=== PATIENT | female | born 1985 | race American Indian/Alaskan Native ===

== ENCOUNTER 2019-10-08 20:35 | Inpatient (IN) | payer OTHER, MEDICAID ==
[2019-10-08] MEDS ORDERED: LACTATED RINGERS 1,000 ML ONE (20:58)
[2019-10-08 21:59] LABS: Hematocrit 44.9 % (30.3-42.9); Hemoglobin 14.7 gm/dl (10.1-14.3); Mean Corpuscular HGB Conc 33 % (30-34); Mean Corpuscular Volume 93 fl (79-97); Platelet Count 214 K/mm3 (140-440); Red Blood Count 4.84 M/mm3 (3.65-5.03)
[2019-10-08] MEDS ORDERED: fentaNYL 100 MCG/2 ML INJ IV PRN (22:08)
[2019-10-08] MEDS ORDERED: FAMOTIDINE 20 MG/2 ML INJ IV PRN (22:09)
[2019-10-08] MEDS ORDERED: ONDANSETRON 4 MG/2 ML INJ IV PRN (22:09)
[2019-10-08] MEDS ORDERED: ZOLPIDEM 5 MG TAB PO PRN (22:10)
[2019-10-08] MEDS: miSOPROStol 25 MCG TAB PO PRN (22:42)
[2019-10-09] MEDS: miSOPROStol 25 MCG TAB PO PRN ×2 (03:11→07:32)
[2019-10-09] MEDS ORDERED: MINERAL OIL 30 ML ORAL LIQD PO PRN (06:37)
[2019-10-09] MEDS ORDERED: ePHEDrine SULFATE 50 MG/1 ML INJ IV PRN (06:37)
[2019-10-09] MEDS ORDERED: TERBUTALINE 1 MG/1 ML INJ IVP PRN (06:37)
[2019-10-09] MEDS ORDERED: TERBUTALINE 1 MG/1 ML INJ SUB-Q PRN (06:37)
[2019-10-09] MEDS ORDERED: LIDOCAINE (2%) 20 MG/1 ML VIAL 20 ML MDV INFILTRATI ONE (06:37)
[2019-10-09] MEDS ORDERED: LACTATED RINGERS 1,000 ML IV SCH (07:00)
[2019-10-09] MEDS ORDERED: OXYTOCIN 20 UNIT/1000ML DRIP 20 UNITS/1,000 ML BAG IV SCH (07:00)
--- NOTE | 2019-10-09 09:10 | History and Physical Report ---
History of Present Illness Date of examination: 10/09/19 Date of admission: 10/08/19 20:35 Chief complaint: IOL secondary to post-date History of present illness: 34 yo, @ 40.4 wks gestation, initiated care with [employer] @ 9.5 wks gestation. Her has been complicated by obesity, AMA, Anemia, UTI and CHTN. She presents to [facility] on 10/08/2019 evening for scheduled IOL. She reports +FM. Denies any VB or LOF. Labs: A+, antibody negative; HGB 10.7/Hct 33; PAP normal;VDRL non-reactive; HBsAg negative; HIV negative; platelets 325; GC/Chlamydia/Trich negative; MSAFP/Multiple markers negative; 1 hr gtt 91; GBS negative. Past History Past Medical History: no pertinent history Past Surgical History: no surgical history Family/Genetic History: none Social history: , lives with family, full code. denies: smoking, alcohol abuse, prescription drug abuse, IV drug use - Obstetrical History Expected Date of Delivery: 10/05/19 Actual Gestation: 40 Week(s) 4 Day(s) : 4 Para: 3 Hx # Term Pregnancies: 3 Number of Pregnancies: 0 Spontaneous Abortions: 0 Induced : 0 Number of Living Children: 3 #1 Infant Gender: Male year: 1,[birth year] Birthweight: 3.77 kg Method of Delivery: Vaginal Gestational age at delivery: 39 Complications: none #2 Infant Gender: Female year: 2,[birth year] Birthweight: 3.884 kg Method of Delivery: Vaginal Gestational age at delivery: 39 Complications: none #3 Gender: Male year: 2,[birth year] Birthweight: 3.77 kg Method of Delivery: Vaginal Gestational age at delivery: 39 Complications: none Medications and Allergies Allergies Allergy/AdvReac Type Severity Reaction Status Date / Time No Known Allergies Allergy Verified 06/18/19 05:04 Home Medications Medication Instructions Recorded Confirmed Last Taken Type Labetalol 100mg TAB 100 mg PO BID 10/08/19 10/08/19 10/08/19 History 147/Iron/Folic Acid 100 mg PO DAILY 10/08/19 10/08/19 10/08/19 History Vitamin D3 60 mg PO DAILY 10/08/19 10/08/19 10/08/19 History Active Meds: Active Medications Butorphanol Tartrate (Stadol) 2 mg IV Q2H PRN PRN Reason: Labor Pain Ephedrine Sulfate (Ephedrine Sulfate) 10 mg IV Q2M PRN PRN Reason: Hypotension Famotidine (Pepcid) 20 mg IV BID PRN PRN Reason: Indigestion Fentanyl (Sublimaze) 100 mcg IV Q2H PRN PRN Reason: Labor Pain Lactated Ringer's (Lactated Ringers) 1,000 mls @ 125 mls/hr IV DIRECT JENNIFER Oxytocin/Sodium Chloride (Pitocin/Ns 20 Unit/1000ml Drip) 20 units in 1,000 mls @ 125 mls/hr IV DIRECT JENNIFER Lactated Ringer's (Lactated Ringers) 1,000 mls @ 125 mls/hr IV DIRECT JENNIFER Mineral Oil (Mineral Oil) 30 ml PO QHS PRN PRN Reason: Constipation Ondansetron HCl (Zofran) 4 mg IV Q8H PRN PRN Reason: Nausea And Vomiting Terbutaline Sulfate (Brethine) 0.25 mg SUB-Q ONCE PRN PRN Reason: Hyperstimulation/Hypertonicity Terbutaline Sulfate (Brethine) 0.25 mg IVP ONCE PRN PRN Reason: Hyperstimulation/Hypertonicity Zolpidem Tartrate (Ambien) 5 mg PO QHS PRN PRN Reason: Sleep Review of Systems All systems: negative - Vital Signs Vital signs: Vital Signs Temp Pulse Resp BP 98.1 F 79 18 138/82 10/08/19 21:15 10/08/19 21:15 10/08/19 21:15 10/08/19 21:15 Temp Pulse Resp BP Pulse Ox 98.0 F 94 H 18 126/73 100 10/09/19 07:11 10/09/19 09:00 10/09/19 00:00 10/09/19 08:05 10/09/19 09:00 - Physical Exam Breasts: Positive: normal Cardiovascular: Regular rate Lungs: Positive: Normal air movement Abdomen: Positive: other (gravid) Vagina: Positive: normal moisture Uterus: Positive: enlarged Extremities: Positive: normal Deep Tendon Reflex Grade: Normal +2 - Obstetrical FHR: category 1 (with occasional early decelerations) Uterine Contraction Monitor Mode: External Cervical Dilatation: 2 Cervical Effacement Percentage: 50 station: -3 Uterine Contraction Frequency (min): 5-6 Uterine Contraction Pattern: Irregular Uterine Tone Measurement Phase: Resting Uterine Contraction Intensity: Mild Results Result Diagrams: 10/08/19 21:15 Abnormal lab results 10/08/19 Range/Units 21:15 Hgb 14.7 H (10.1-14.3) gm/dl Hct 44.9 H (30.3-42.9) % All other labs normal. Assessment and Plan - Patient Problems (1) Encounter for induction of labor Current Visit: Yes Status: Acute Plan to address problem: Admit to L & D IOL, initiated on 10/08/2019, has received Cytotec x 3 doses Cervical exam at 1130, initiate Pitocin @ 2mu/min, increase by 2 as tolerated Pain meds as desired Anticipate (2) Advanced maternal age in multigravida Current Visit: Yes Status: Acute (3) Chronic hypertension Current Visit: Yes Status: Acute Plan to address problem: Monitor B/Ps per policy Resume Labetol PP
[2019-10-09] MEDS ORDERED: OXYTOCIN DRIP 30 UNITS/500 ML BAG IV SCH (11:30)
--- NOTE | 2019-10-09 16:30 | Event Note ---
Date: 10/09/19 AROM'd clear. 2 Cont pit. Expectant care.
[2019-10-09] MEDS: BUTORPHANOL 2 MG/1 ML INJ IV PRN ×2 (18:21→22:52)
--- NOTE | 2019-10-09 19:11 | Event Note ---
Date: 10/09/19 Pt just had pit stopped due to suspected hyperstim. [place] with ctxs q 1 min with FHT showing some late decels and decreased LTV. FSE placed just now. VE = /-2. A/P - will watch closely and hold off on pit for now until FHT recovers.
[2019-10-09] MEDS: LACTATED RINGERS 1,000 ML IV SCH (19:47)
[2019-10-10] MEDS: LACTATED RINGERS 1,000 ML IV SCH (04:14)
[2019-10-10] MEDS ORDERED: OXYTOCIN 20 UNIT/1000ML DRIP 20 UNITS/1,000 ML BAG IV SCH (05:00)
[2019-10-10] MEDS ORDERED: PROMETHAZINE 25 MG TAB PO PRN (05:00)
[2019-10-10] MEDS ORDERED: diphenhydrAMINE 25 MG CAP PO PRN (05:00)
[2019-10-10] MEDS ORDERED: LANOLIN/ZINC/DIMETHICONE (LANSINOH) 7 GM TP PRN (05:00)
[2019-10-10] MEDS ORDERED: MAGNESIUM HYDROXIDE (MOM) ORAL LIQD UDC PO PRN (05:00)
[2019-10-10] MEDS ORDERED: ONDANSETRON 4 MG/2 ML INJ IV PRN (05:00)
[2019-10-10] MEDS ORDERED: WITCH HAZEL/ GLYCERIN PAD TP PRN (05:00)
[2019-10-10] MEDS ORDERED: PROMETHAZINE 25 MG RECT SUPP PR PRN (05:00)
[2019-10-10] MEDS ORDERED: BENZOCAINE/MENTHOL 20/0.5% TOP SPRAY 56 GM TP PRN (05:00)
[2019-10-10] MEDS ORDERED: ACETAMINOPHEN 325 MG TAB PO PRN (05:00)
--- NOTE | 2019-10-10 05:07 | Procedure Note ---
OB Delivery Note - Delivery Date of Delivery: 10/10/19 Surgeon: TANNA FRANK Hop Separator: ROYCE LAO Estimated blood loss: 200cc - Vaginal Delivery position: OA Intrapartum events: mult.variable deceleratio Delivery augmentation: rupture of membranes, pitocin Delivery monitor: internal FHT Route of delivery: Delivery placenta: spontaneous Delivery cord: 3 umbilical vessels Episiotomy: none Delivery laceration: none Anesthesia: intravenous Delivery comments: Anterior shoulder delivered with the assistance of brief Melissa and suprapub ic pressure. Bulb suctioned at perineum and again after delivery. Cord clamped and cut and baby to the warmer. Placenta delivered spontaneously. No lacs. Mother and baby stable. - Infant A at 1 minute: 8 at 5 minutes: 9 Gender: Female
[2019-10-10] MEDS: IBUPROFEN 600 MG TAB PO SCH ×2 (11:44→18:16)
[2019-10-11] MEDS: IBUPROFEN 600 MG TAB PO SCH ×2 (05:26→18:53)
[2019-10-11 08:18] LABS: Hematocrit 35.2 % (30.3-42.9); Hemoglobin 11.3 gm/dl (10.1-14.3)
--- NOTE | 2019-10-11 10:09 | Progress Note ---
Assessment and Plan - Patient Problems (1) Advanced maternal age in multigravida Current Visit: Yes Status: Acute (2) Chronic hypertension Current Visit: Yes Status: Acute Plan to address problem: Continue Labetalol as ordered F/U at office in 1 week Return to hospital for any sever H/As or visual changes (3) Normal spontaneous vaginal delivery Current Visit: Yes Status: Acute Plan to address problem: D/C home today if baby ok for d/c F/U at office in 6 wks for routine PP visit Subjective - Subjective Date of service: 10/11/19 Principal diagnosis: S/P ; PPD#1 Interval history: 34 yo, @ 40.4 wks gestation, initiated care with [employer] @ 9.5 wks gestation. Her has been complicated by obesity, AMA, Anemia, UTI and CHTN. She presents to [facility] on 10/08/2019 evening for scheduled IOL. She reports +FM. Denies any VB or LOF. Labs: A+, antibody negative; HGB 10.7/Hct 33; PAP normal;VDRL non-reactive; HBsAg negative; HIV negative; platelets 325; GC/Chlamydia/Trich negative; MSAFP/Multiple markers negative; 1 hr gtt 91; GBS negative. Patient reports: appetite normal, voiding normally, pain well controlled, flatus, ambulating normally Ledger: doing well, bottle feeding (and ) Objective - Vital Signs Latest vital signs: Vital Signs Temp Pulse Resp BP BP Pulse Ox 10/11/19 07:43 98.7 F 82 18 114/63 100 10/11/19 00:00 98.0 F 88 20 128/68 94 10/10/19 22:01 87 141/70 10/10/19 16:20 97.9 F 86 20 119/54 Intake and Output 10/10/19 10/11/19 10/11/19 23:59 07:59 15:59 Intake Total 560 240 120 Balance 560 240 120 Intake: Oral 560 120 Intake, Free Water 240 Other: Total, Intake Amount 240 120 # Voids Void 1 1 1 - Exam Breasts: Present: normal Cardiovascular: Present: Regular rate Lungs: Present: Normal air movement Abdomen: Present: soft Uterus: Present: firm, fundal height below umbilicus (U-1) Extremities: Present: normal Deep Tendon Reflex Grade: Normal +2
--- NOTE | 2019-10-11 10:18 | Discharge Summary ---
Providers - Providers Date of Admission: 10/08/19 20:35 Date of discharge: 10/11/19 (1500) Attending physician: FRANSISCA ZHOU MD Primary care physician: FRANSISCA ZHOU MD Hospitalization Reason for admission: induction of labor, IUP at term Delivery: Episiotomy: none Laceration: none Other procedures: none complications: none Discharge diagnosis: IUP at term delivered [place] baby: female Hospital course: See admission H & P; OB delivery summary and PP progress notes Condition at discharge: Good Disposition: DC-01 TO HOME OR SELFCARE - Discharge Diagnoses (1) Advanced maternal age in multigravida Status: Acute (2) Chronic hypertension Status: Acute (3) Normal spontaneous vaginal delivery Status: Acute Plan - Provider Discharge Summary Activity: routine, no sex for 6 weeks, no heavy lifting 4 weeks, no strenuous exercise Diet: routine Instructions: routine Additional instructions: [] Smoking cessation referral if applicable(refer to patient education folder for contact #) [] Refer to [facility] Booklet Call your doctor immediately for: * Fever > 100.5 * Heavy vaginal bleeding ( >1 pad per hour) * Severe persistent headache * Shortness of breath * Reddened, hot, painful area to leg or breast - Follow up plan Follow up: FRANSISCA ZHOU MD [Primary Care Provider] - 6 Weeks
[2019-10-11 17:35] VITALS: BP 135/79
== END 2019-10-11 19:02 | disposition home or self-care (01) | DRG 807 ==
LOC: LD 20:35 → OB 10-10 07:37
PROVIDERS: ADMIT Obstetrics & Gynecology; ATTEND Obstetrics & Gynecology
PROC: 10E0XZZ Delivery of Products of Conception, External Approach (ICD-10-PCS; principal; 2019-10-10)
DX: O99.214 Obesity complicating childbirth (principal); Z37.0 Single live birth; E66.9 Obesity, unspecified; O16.4 Unspecified maternal hypertension, complicating childbirth; Z3A.40 40 weeks gestation of pregnancy; O09.523 Supervision of elderly multigravida, third trimester; O76 Abnormality in fetal heart rate and rhythm complicating labor and delivery
CPT/HCPCS: 36415; 85014; 85018; 85027; 86592; 86850; 86900; 86901; G0378; J0595; J2590; J3010; J7120